=== PATIENT | male | born 1970 | race Caucasian/White ===

== ENCOUNTER 2016-10-02 00:54 | Emergency (ER) | payer OTHER ==
[~2016-10-02 00:54] MED LIST: HYDROCORTISO453.6 G2 TOP
== END 2016-10-02 02:48 | disposition home or self-care (01) ==
LOC: CED 00:54
DX: L30.1 Dyshidrosis [pompholyx] (principal); F17.210 Nicotine dependence, cigarettes, uncomplicated
CPT/HCPCS: 96372; 99282; J1100